=== PATIENT | male | born 1990 | race Caucasian/White ===

== ENCOUNTER 2017-02-10 17:06 | Emergency (ER) | payer MEDICAID ==
[2017-02-10 17:24] VITALS: BP 141/76
--- NOTE | 2017-02-10 17:56 | ED Physician Documentation ---
PD HPI LOWER EXT INJURY - Stated complaint Stated Complaint: LT KNEE PX - Chief complaint Chief Complaint: Ext Problem - History obtained from History obtained from: Patient - History of Present Illness PD HPI LOW EXT INJURY LOCATION: Left, Knee Type of injury: No: Twist, Blunt / blow Where injury occurred: Work Timing - onset: How many weeks ago (2-3) Timing - details: Gradual onset, Still present, Waxing and waning (more noted at last part and end of work day.) Worsened by: Moving. No: Palpating Associated symptoms: Swelling, Other (locking couple times, giving out and clicking the past few days.). No: Weakness, Numbness Contributing factors: No: Prior ortho surgery Similar symptoms before: No diagnosis (had a knee injury running 8 years ago and has had just intermittent problems since. Last summer lilian, he went through half of summer before his knee hurt like it does currently.) Recently seen: Not recently seen Review of Systems Constitutional: denies: Fever, Chills Skin: denies: Rash, Lesions, Abrasion (s), Laceration (s) Musculoskeletal: reports: Other (knee pain as in HPI.) Neurologic: denies: Focal weakness, Numbness PD PAST MEDICAL HISTORY - Past Medical History Past Medical History: No Endocrine/Autoimmune: None Musculoskeletal: None - Past Surgical History Past Surgical History: Yes General: Appendectomy - Present Medications Home Medications: Ambulatory Orders Medication Instructions Recorded Confirmed Hydrocodone/Acetaminophen [Daisetta 1 each PO Q6H PRN #20 tablet 02/10/17 5-325 Tablet] Naproxen [Naprosyn] 500 mg PO BID #20 tablet 02/10/17 - Allergies Allergies/Adverse Reactions: Allergies Allergy/AdvReac Type Severity Reaction Status Date / Time No Known Drug Allergies Allergy Verified 02/10/17 17:11 - Social History Does the pt smoke?: Yes Smoking Status: Current every day smoker Does the pt drink ETOH?: No Does the pt have substance abuse?: No PD ED PE NORMAL - Vitals Vital signs reviewed: Yes - General General: Alert and oriented X 3, Well developed/nourished - Back Back: No spinal TTP - Derm Derm: Normal color, Warm and dry - Extremities Extremities: No edema, No calf tenderness / cord, Other (left knee without effusion. Tender anteriorly above and below kneecap in tendon area. No crepitance. Ligament testing without laxity nor pain. Meniscal impaction testing with pain but no clicking. ) - Neuro Neuro: Alert and oriented X 3, No motor deficit, No sensory deficit Results - Vitals Vitals: Oxygen O2 Source Room air - Rads (name of study) knee Radiology: Prelim report reviewed, EMP read contemporaneously (no acute) PD MEDICAL DECISION MAKING - ED course Complexity details: reviewed results, considered differential (sounds like meniscal process, likely loose tear. 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 But can try it and can go to straight when not working and follow up with ORtho. ), d/w patient Departure - Departure Disposition: 01 Home, Self Care Clinical Impression: Left knee pain Qualifiers: Chronicity: acute Qualified Code(s): M25.562 - Pain in left knee Meniscal injury Qualifiers: Encounter type: initial encounter Laterality: left Qualified Code(s): S83.92XA - Sprain of unspecified site of left knee, initial encounter Condition: Stable Record reviewed to determine appropriate education?: Yes Instructions: ED Meniscal Injury Knee Poss, ED Sprain Knee Follow-Up: Rolando Hanson MD [Provider Admit Priv/Credential] - Prescriptions: Naproxen [Naprosyn] 500 mg PO BID #20 tablet Hydrocodone/Acetaminophen [Daisetta 5-325 Tablet] 1 each PO Q6H PRN #20 tablet PRN Reason: Pain Comments: Use the knee brace when up and around. During work, you can set it for 0-90 degree range to allow some function, then otherwise to set it to 0-20 degrees to support the cartilage and tendons better. Naproxen twice daily for 10 days. Add Tylenol or pain med as needed for pain. Follow up with Ortho in about a week , call tomorrow for an appt. This may be some patellar tendonitis but also sounds likely to be a torn meniscus. The above is the initial right treatment for both. Discharge Date/Time: 02/10/17 19:42
[2017-02-10] MEDS ORDERED: IBUPROFEN 600 MG TABLET PO STA (18:38)
[2017-02-10] MEDS ORDERED: traMADol 50 MG TABLET PO STA (18:38)
[2017-02-10] MEDS ORDERED: IBUPROFEN 600 MG TABLET PO ONE (18:54)
[2017-02-10] MEDS ORDERED: traMADol 50 MG TABLET PO ONE (18:54)
--- NOTE | 2017-02-10 20:08 | XRAY Preliminary Report ---
Exam: XR Knee 4 View LT IMPRESSION: Normal knee radiography. [facility] SITE ID: [id number]
--- NOTE | 2017-02-10 20:10 | XRAY Report ---
EXAM: LEFT KNEE RADIOGRAPHY EXAM DATE: 02/10/2017 07:06 PM. CLINICAL HISTORY: Knee pain for awhile, worse for 2 weeks. COMPARISON: None. TECHNIQUE: 4 views. FINDINGS: Bones: Normal. No fractures or bone lesions. Joints: Normal. No effusion. No subluxations. Soft Tissues: Normal. No soft tissue swelling. IMPRESSION: Normal knee radiography. [facility] Referring Provider Line: [phone] SITE ID: [id number]
== END 2017-02-10 19:42 | disposition home or self-care (01) ==
LOC: ED 17:06
DX: M25.562 Pain in left knee (principal); S83.92XA Sprain of unspecified site of left knee, initial encounter; X50.9XXA Other and unspecified overexertion or strenuous movements or postures, initial encounter; Y99.0 Civilian activity done for income or pay; F17.200 Nicotine dependence, unspecified, uncomplicated
CPT/HCPCS: 73564; 99283; A9270

== ENCOUNTER 2017-04-11 13:35 | Emergency (ER) | payer MEDICAID ==
--- NOTE | 2017-04-11 14:41 | ED Physician Documentation ---
PD HPI HEENT - Stated complaint Stated Complaint: TOOTH PAIN - Chief complaint Chief Complaint: Heent - History obtained from History obtained from: Patient - History of Present Illness Timing - onset: How many weeks ago (several) Timing - duration: Weeks Timing - details: Gradual onset Pain level max: 8 Pain level now: 8 Location: Tooth (R upper molar) Improves: Other (antibiotics were helping) Worsens: Temperatures, Other (chewing) Associated symptoms: No: Fever, Congestion, Rhinorrhea, Trismus, Unable to swallow, Swollen nodes, Facial swelling Similar symptoms before: Diagnosis (dental caries/abscess) Recently seen: Other (Patient states that he saw a dentist a few weeks ago, was told that he needs the wisdom teeth pulled, is being referred. [place] better on abx, now pain returned.) Review of Systems Constitutional: denies: Fever, Chills Nose: denies: Rhinorrhea / runny nose, Congestion Throat: denies: Sore throat GI: denies: Nausea, Vomiting, Diarrhea Skin: denies: Rash PD PAST MEDICAL HISTORY - Past Medical History Past Medical History: No Musculoskeletal: None - Past Surgical History Past Surgical History: Yes General: Appendectomy - Present Medications Home Medications: Ambulatory Orders Medication Instructions Recorded Confirmed Hydrocodone/Acetaminophen 1 - 2 each PO Q6H PRN #10 tablet 04/11/17 [Hydrocodon-Acetaminophen 5-325] Ibuprofen [Motrin] 800 mg PO Q8H PRN #30 tablet 04/11/17 Penicillin V Potassium 500 mg PO Q6HR #40 tablet 04/11/17 - Allergies Allergies/Adverse Reactions: Allergies Allergy/AdvReac Type Severity Reaction Status Date / Time No Known Drug Allergies Allergy Verified 04/11/17 13:42 - Social History Does the pt smoke?: Yes Smoking Status: Current every day smoker Does the pt drink ETOH?: No Does the pt have substance abuse?: No - Immunizations Immunizations are current?: Yes PD ED PE NORMAL - Vitals Vital signs reviewed: Yes - General General: Alert and oriented X 3, No acute distress, Well developed/nourished - HEENT HEENT: Ears normal, Moist mucous membranes, Pharynx benign - Neck Neck: Supple, no meningeal sign, No adenopathy - Cardiac Cardiac: RRR, No murmur - Respiratory Respiratory: No respiratory distress, Clear bilaterally - Derm Derm: Warm and dry - Neuro Neuro: Alert and oriented X 3 PD ED PE EXPANDED - HEENT HEENT Visual: 1 - tenderness (no swelling or drainable abscess) Results - Vitals Vitals: Vital Signs - 24 hr 04/11/17 04/11/17 13:40 14:49 Temperature 36.6 C Heart Rate 98 95 Respiratory 14 16 Rate Blood Pressure 127/70 115/71 O2 Saturation 100 100 Oxygen O2 Source Room air PD MEDICAL DECISION MAKING - ED course Complexity details: considered differential, d/w patient ED course: Patient is a 26-year-old male who presents to the emergency department with recurrent dental pain. Will place back on antibiotics and pain medication for home. Encourage close follow-up with his dentist. No gingival swelling, no facial swelling or cellulitis. No fevers. Patient counseled regarding signs and symptoms for which I believe and urgent re-evaluation would be necessary. Patient with good understanding of and agreement to plan and is comfortable going home at this time This document was made in part using voice recognition software. While efforts are made to proofread this document, sound alike and grammatical errors may occur. Departure - Departure Disposition: 01 Home, Self Care Clinical Impression: Dental caries Condition: Good Instructions: ED Cavity Dental, ED Tooth Pain Follow-Up: Robert Wood DDS [Physician No Access] - Adan Daley DDS [Physician No Access] - Prince Dawson DDS [Physician No Access] - NONI OLEARY [Physician No Access] - SADI PEREIRA DDS [Physician No Access] - JONNY PEREZ [Physician No Access] - [facility]aim[facility] Michael DDS [Physician No Access] - Vladimir Pérez DDS [Physician No Access] - Austen Rucker DDS [Physician No Access] - Dwayne Perales DDS [Physician No Access] - Natalie Renae DDS [Physician No Access] - JANNET HAMILTON [Physician No Access] - Brett Conrad DDS [Physician No Access] - Luis Felipe Matute DDS [Physician No Access] - MARCUS FLANAGAN MD [Physician No Access] - ANTELMO JUNIOR DDS [Physician No Access] - ADAN SALAZAR [Physician No Access] - Prescriptions: Penicillin V Potassium 500 mg PO Q6HR #40 tablet Hydrocodone/Acetaminophen [Hydrocodon-Acetaminophen 5-325] 1 - 2 each PO Q6H PRN #10 tablet PRN Reason: pain Ibuprofen [Motrin] 800 mg PO Q8H PRN #30 tablet PRN Reason: PAIN &/OR FEVER Comments: Take all antibiotics until gone. Return if you worsen. Do not drink alcohol or drive while on narcotic pain medicine. Note that many narcotic pain relievers also contain tylenol/acetaminophen. Please ensure that your total dose of acetaminophen from all sources does not exceed 3 grams (3000mg) per day. You may constipated on this medication, take a stool softener such as "Colace" twice a day while you are on it. Also recommend a hios-rlu-dascurc laxative such as senna or MiraLAX any day that you do not have a bowel movement. If you received narcotic pain medication in the emergency department, do not drive or operate machinery for the next 24 hours. Discharge Date/Time: 04/11/17 14:49
[2017-04-11 14:51] VITALS: BP 115/71
== END 2017-04-11 14:49 | disposition home or self-care (01) ==
LOC: ED 13:35
DX: K02.9 Dental caries, unspecified (principal); F17.200 Nicotine dependence, unspecified, uncomplicated
CPT/HCPCS: 99282; 99283

== ENCOUNTER 2023-03-28 11:08 | Observation (INO) | payer MEDICAID ==
--- OUTSIDE RECORDS SUMMARY | 2023-03-28 12:01 | EXTERNAL MEDICAL SUMMARY RPT | Continuity of Care Document ---
Author Name Unknown Address [address] [place] [address] Phone Organization [facility] Address [address] [place] [address] Phone Care Team Providers Care Telephone Surveyor Name Role Phone Faith Siegel Unavailable Unavailable Allergies and Intolerances date description facility reaction severity (no date) No Known Drug Allergies (no zhao ction) (no severity) Problems date description facility 2023-03-24 00:00 Patient left without being seen Procedures date description facility 2023-03-24 00:00 XR finger left, 2+ views Results/Labs test date facility value unit notes Social History date description facility 2023-03-24 00:00 Smokes tobacco daily (finding) Vital Signs date measurement value units 2023-03-24 00:00 BMI 24.3 kg/m2 2023-03-24 00:00 BP_diastolic 74 mmHg 2023-03-24 00:00 BP_systolic 128 mmHg 2023-03-24 00:00 heart_rate 100 /min 2023-03-24 00:00 height_metric 172.72 cm 2023-03-24 00:00 height_standard 68 in 2023-03-24 00:00 o2_saturation 100 % 2023-03-24 00:00 respiration_rate 14 /min 2023-03-24 00:00 temperature_metric 36.78 C 2023-03-24 00:00 temperature_standard 98.2 F 2023-03-24 00:00 weight_metric 72.57 kg 2023-03-24 00:00 weight_standard 159.99 lb
[2023-03-28] MEDS ORDERED: VANCOMYCIN INJ 2 GM in SODIUM CHLORIDE 0.9% 500 ML IV STA (13:00)
[2023-03-28] MEDS ORDERED: BUFFERED LIDOCAINE 10 ML SYRINGE SUBQ STA (13:00)
--- NOTE | 2023-03-28 13:01 | ED Physician Documentation ---
History of Present Illness - Stated complaint Stated Complaint: SPIDER BITE,FINGER SWELLING X 4 DAYS - Chief complaint Chief Complaint: General - History obtained from History obtained from: Patient - Additonal information Additional information: 32-year-old gentleman sustained what he thinks is a spider bite to the dorsum of the left second finger 4 days ago with progressive pain and swelling there. Now he has swelling up the arm. He denies fevers. PD PAST MEDICAL HISTORY - Past Medical History Endocrine/Autoimmune: None Musculoskeletal: None - Past Surgical History Past Surgical History: Yes General: Appendectomy - Present Medications Home Medications: Ambulatory Orders Medication Instructions Recorded Confirmed No Known Home Medications 03/28/23 03/28/23 - Allergies Allergies/Adverse Reactions: Allergies Allergy/AdvReac Type Severity Reaction Status Date / Time No Known Drug Allergies Allergy Verified 04/11/17 13:42 - Social History Does the pt smoke?: Yes Smoking Status: Current every day smoker Does the pt drink ETOH?: No Does the pt have substance abuse?: No - Immunizations Immunizations are current?: Yes PD ED PE NORMAL - Vitals Vital signs reviewed: Yes - General General: Alert and oriented X 3, Other (Slightly disheveled and unkempt) - Cardiac Cardiac: RRR, No murmur - Respiratory Respiratory: No respiratory distress, Clear bilaterally - Abdomen Abdomen: Non tender - Back Back: No CVA TTP, No spinal TTP - Derm Derm: Normal color, Warm and dry - Extremities Extremities: Other (There is an abscess on the dorsum of the left second finger, over the middle phalanx. He has swelling and cellulitis progressing up the f ginny to the proximal wrist. He has limited range of motion of the second digit due to pain.) - Neuro Neuro: Alert and oriented X 3, Normal speech Results - Vitals Vitals: Vital Signs - 24 hr 03/28/23 11:42 Temperature 36.9 C Heart Rate 106 H Respiratory 20 Rate Blood Pressure 127/74 O2 Saturation 99 Oxygen O2 Source Room air - Labs Labs: Laboratory Tests 03/28/23 03/28/23 03/28/23 13:12 13:12 13:12 WBC 11.2 H RBC 4.49 L Hgb 13.0 L Hct 40.0 L MCV 89.1 MCH 29.0 MCHC 32.5 RDW 12.7 Plt Count 362 MPV 9.7 Neut # (Auto) 8.1 H Lymph # (Auto) 2.2 [place] # (Auto) 0.6 Eos # (Auto) 0.1 Baso # (Auto) 0.1 Absolute Nucleated RBC 0.00 Nucleated RBC % 0.0 Sodium 136 Potassium 3.5 Chloride 97 L Carbon Dioxide 34 H Anion Gap 5.0 L BUN 9 Creatinine 0.7 Estimated GFR (MDRD) 132 Glucose 98 Lactic Acid 1.2 Calcium 9.6 Total Bilirubin 0.3 AST 18 ALT 17 Alkaline Phosphatase 92 Total Protein 7.1 Albumin 4.0 Globulin 3.1 Albumin/Globulin Ratio 1.3 Procedures - Abscess I&D (location) Left second finger Preparation: Lidocaine 1% (Digital block with buffered lidocaine and also 1 mg of IV Ativan for anxiolysis as he was quite anxious.) Incision: Incised with scalpel, Purulent drainage, Loculations broken, Culture obtained Other: Pt tolerated well PD Medical Decision Making - ED course ED course: 32-year-old gentleman with an abscess of several days duration to the dorsum of the left second finger. An I&D was done. Needed some Ativan for anxiolysis. The cellulitis is quite extensive of his arm and as such I think he should probably be admitted for IV antibiotics. Spoke with our on-call orthopedic surgeon, Dr Estrella at 1:55 PM who will follow along and recommends Ancef in addition to the vancomycin already ordered. Spoke with Dr. Esparza for observation at 2 PM. Departure - Departure Disposition: ED Place in Observation Clinical Impression: Abscess of finger of left hand, Cellulitis of arm, left Condition: Serious Forms: PCP List
[2023-03-28] MEDS ORDERED: LORazepam 2 MG/ML VIAL IVP STA (13:09)
[2023-03-28 13:29] LABS: BASOPHILS # (AUTO) 0.1 10^3/uL (0.0-0.1); BASOPHILS % (AUTO) 0.4 %; EOSINOPHILS # (AUTO) 0.1 10^3/uL (0.0-0.7); EOSINOPHILS % (AUTO) 1.1 %; LYMPHOCYTES # (AUTO) 2.2 10^3/uL (1.5-3.5); LYMPHOCYTES % (AUTO) 19.7 %; MEAN CORPUSCULAR HGB CONC 32.5 g/dL (32.0-36.0); MEAN CORPUSCULAR VOLUME 89.1 fL (80.0-94.0); MEAN PLATELET VOLUME 9.7 fL (7.4-11.4); MONOCYTES # (AUTO) 0.6 10^3/uL (0.0-1.0); MONOCYTES % (AUTO) 5.6 %; NEUTROPHILS # (AUTO) 8.1 10^3/uL (1.5-6.6); NEUTROPHILS % (AUTO) 72.8 %; PLT - PLATELET COUNT 362 10^3/uL (130-450); RED BLOOD COUNT 4.49 10^6/uL (4.70-6.10); RED CELL DISTRIBUTION WIDTH 12.7 % (12.0-15.0); WHITE BLOOD COUNT 11.2 x10^3/uL (4.8-10.8)
[2023-03-28 13:40] LABS: ALBUMIN/GLOBULIN RATIO 1.3 (1.0-2.2); BILIRUBIN,TOTAL 0.3 mg/dL (0.2-1.0); CALCIUM 9.6 mg/dL (8.5-10.3); CREATININE 0.7 mg/dL (0.6-1.3); POTASSIUM 3.5 mmol/L (3.5-4.5); TOTAL PROTEIN 7.1 g/dL (6.4-8.9)
[2023-03-28] MEDS ORDERED: ceFAZolin 1 GM in SODIUM CHLORIDE 0.9% MINIBAG 100 ML IV STA (13:55)
[2023-03-28] MEDS ORDERED: SODIUM CHLORIDE FLUSH 0.9% 10 ML SYRINGE IVP PRN (15:16)
[2023-03-28] MEDS ORDERED: ACETAMINOPHEN 325 MG TABLET PO PRN (15:16)
[2023-03-28] MEDS ORDERED: ONDANSETRON 4 MG/2 ML VIAL IVP PRN (15:16)
--- NOTE | 2023-03-28 18:37 | PHARMACY PROGRESS NOTE ---
- Therapy Status Vancomycin regimen day #: 1 Therapy status: Awaiting steady state Basis for treatment: Empirical Treatment indication: SSTI FROM SPIDER BITE (MRSA RISK) Trough goal: 10-15 Concurrent antibiotics: ANCEF - Monitoring and Recommendation Clinical response to treatment: I&O Previous 24 hours 03/26/23 03/27/23 03/28/23 23:59 23:59 23:59 Intake Total 737 Balance 737 Lab Results 03/28/23 13:12 BUN 9 Creatinine 0.7 Estimated GFR (MDRD) 132 Monitoring plan: Daily serum creatinine Next trough due prior to maintenance dose #: 4 Next trough due (date/time): 03/29/23 At 12:30
[2023-03-28] MEDS ORDERED: ceFAZolin 1 GM VIAL IVP SCH (19:00)
[2023-03-28] MEDS: SODIUM CHLORIDE FLUSH 0.9% 10 ML SYRINGE IVP SCH (19:18)
[2023-03-28] MEDS: HYDROcod/ACETAM 10 MG/325 MG TABLET PO PRN (19:47)
--- NOTE | 2023-03-28 19:56 | HISTORY & PHYSICAL EXAMINATION ---
Chief Complaint - Chief Complaint Chief Complaint: Swollen painful finger, spreading to hand History of Present Illness - Admitted From Admitted From:: ED - History Obtained From History obtained from: ED provider and the pt - History of Present Illness HPI Comment/Other: This is a 32-year-old male with no significant past medical history. He reports that he had a wound on his leg 1 year ago in the summer which she thought started as a spider bite and it swelled, burst and healed on its own. Patient presented to the ER today complaining of swelling of his left second finger on the dorsum which he felt was from a spider bite. It started 2 days ago and has been swelling more, more painful and now the swelling is spreading onto his hand. In the ER he was evaluated and the lesion was incised and drained and pus was expelled and cultures were sent. WBC 11, blood pressure stable, heart rate 106, no fever. The patient was started on Vanco and Ancef. Orthopedics was contacted and will see the pt. The ED provider then spoke to me. The patient will be placed in observation to start him on IV antibiotics, administer pain meds and monitor his progress. History - Past Medical History Cardiovascular: reports: None Respiratory: reports: None Neuro: reports: None Endocrine/Autoimmune: reports: None GI: reports: None TIMBER SETTER: reports: None : reports: None Psych: reports: None Musculoskeletal: reports: None MRSA Hx?: No - Past Surgical History General: reports: Appendectomy - Family & Social History Family History Comment/Other: No diseases run in the family Living arrangement: At home Living Situation: Alone Social History Notes: Patient drinks no alcohol. He has decreased smoking down to 2 cigarettes a day, is trying to quit. He smokes marijuana. He denies other drug use. - Substance History Use: Uses substance without health or social issues: Cannabis Meds/Allgy - Home Medications Home Medications: Ambulatory Orders Medication Instructions Recorded Confirmed No Known Home Medications 03/28/23 03/28/23 - Allergies Allergies/Adverse Reactions: Allergies Allergy/AdvReac Type Severity Reaction Status Date / Time No Known Drug Allergies Allergy Verified 04/11/17 13:42 Review of Systems - Musculoskeletal Musculoskeletal: reports: Other (He has dirt under his nails and dirty skin. When asked if this is from his job, he says that it is "because of where he lives".) - All Other Systems All Other Systems: reports: Reviewed and negative (He denied a fever the past 2 days.) Exam - Vital Signs Reviewed Vital Signs: Yes Vital Signs: Vital Signs x48h Temp Pulse Pulse Resp BP BP Pulse Ox 03/28/23 16:33 36.4 C L 99 16 118/72 99 03/28/23 16:12 87 16 121/82 H 100 03/28/23 14:12 89 20 118/77 100 03/28/23 13:46 16 118/77 100 - Physical Exam General Appearance: positive: No acute distress, Alert Eyes Bilateral: positive: Normal inspection, EOMI ENT: positive: ENT inspection nml, No signs of dehydration Neck: positive: Nml inspection, No JVD Respiratory: positive: No respiratory distress, Breath sounds nml Cardiovascular: positive: Regular rate & rhythm, No murmur Abdomen: positive: Non-tender, Nml bowel sounds, No distention Skin: positive: Warm, Dry Extremities: positive: Other (The left second finger dorsum has a wound (which was I&D'd in the ER) approximately 4 cm in diameter with a clean base. There is redness, swelling and tenderness of the entire left finger and also of his joints of his left hand and swelling goes up to the dorsum of his left wrist) Conclusion/Plan - Problem List (1) Abscess of finger of left hand Conclusion/Plan: Patient claims that the injury started from a spider bite that he sustained 2 days ago. It then started to swell and enlarge, became red and tender. The swelling today started spreading to his hand all the way to his wrist The patient has very poor hygiene with dirt under all of his fingers, other crevices also have dirt. When asked why he has such poor hygiene, whether it is from working, he stated that no it is "because of how he had to do things around his house". I did not ask if he is homeless. Plan: Await Gram stain and culture results from the wound material sent to lab Begin IV Vanco and IV Ancef, as was recommended by orthopedics to the ER doctor Administer pain meds, tylenol prn and narcotics prn have been ordered The wound was dressed with a bandage and gauze by staff forester Left hand elevation Other recommendations from orthopedic consult which we await tomorrow Follow CBC daily (2) Cellulitis of arm, left Conclusion/Plan: Thus welling and tenderness have spread and he appears to have cellulitis Plan: As a #1 - Lab Results Fish Bones: 03/28/23 13:12 03/28/23 13:12
[2023-03-28] MEDS: VANCOMYCIN INJ 1 GM, VANCOMYCIN INJ 250 MG in SODIUM CHLORIDE 0.9% 250 ML IV SCH (20:31)
[2023-03-29] MEDS: ceFAZolin 1 GM in SODIUM CHLORIDE 0.9% MINIBAG 100 ML IV SCH ×2 (00:46→07:16)
[2023-03-29] MEDS: SODIUM CHLORIDE FLUSH 0.9% 10 ML SYRINGE IVP SCH ×3 (00:47→15:50)
[2023-03-29 05:14] LABS: BASOPHILS # (AUTO) 0.1 10^3/uL (0.0-0.1); BASOPHILS % (AUTO) 0.6 %; EOSINOPHILS # (AUTO) 0.1 10^3/uL (0.0-0.7); EOSINOPHILS % (AUTO) 1.7 %; HCT - HEMATOCRIT 36.8 % (42.0-52.0); HGB - HEMOGLOBIN 12.1 g/dL (14.0-18.0); LYMPHOCYTES # (AUTO) 2.3 10^3/uL (1.5-3.5); LYMPHOCYTES % (AUTO) 28.3 %; MEAN CORPUSCULAR HEMOGLOBIN 29.1 pg (27.0-31.0); MEAN CORPUSCULAR HGB CONC 32.9 g/dL (32.0-36.0); MEAN CORPUSCULAR VOLUME 88.5 fL (80.0-94.0); MEAN PLATELET VOLUME 9.8 fL (7.4-11.4); MONOCYTES # (AUTO) 0.7 10^3/uL (0.0-1.0); MONOCYTES % (AUTO) 8.5 %; NEUTROPHILS % (AUTO) 60.7 %; PLT - PLATELET COUNT 353 10^3/uL (130-450); RED BLOOD COUNT 4.16 10^6/uL (4.70-6.10); RED CELL DISTRIBUTION WIDTH 12.7 % (12.0-15.0); WHITE BLOOD COUNT 8.3 x10^3/uL (4.8-10.8)
[2023-03-29] MEDS: VANCOMYCIN INJ 1 GM, VANCOMYCIN INJ 250 MG in SODIUM CHLORIDE 0.9% 250 ML IV SCH ×3 (05:16→23:51)
[2023-03-29 05:28] LABS: CALCIUM 9.1 mg/dL (8.5-10.3); CREATININE 0.6 mg/dL (0.6-1.3); POTASSIUM 4.2 mmol/L (3.5-4.5)
[2023-03-29] MEDS ORDERED: ceFAZolin 1 GM VIAL IVP SCH (09:00)
[2023-03-29] MEDS: cefTRIAXone 2 GM in SODIUM CHLORIDE 0.9% MINIBAG 100 ML IV SCH (12:20)
--- NOTE | 2023-03-29 12:27 | PHARMACY PROGRESS NOTE ---
- Best Possible Medication History Admit Date and Time: 03/28/23 1520 Processed by: Pharmacy Medication History completed: Yes Patient Interview: Completed As the person ultimately responsible for medication therapy, providers are able to order a medication from an existing home medication list in [facility] via the "Reconcile Routine" prior to Confirmation of that medication by desktop support technician. Such practice is discouraged except when the physician, in their clinical sukhdev gment, deems that a medical need exists for a medication without regard to previous use.
[2023-03-29 13:10] LABS: VANCOMYCIN,TROUGH 10.4 ug/mL
--- NOTE | 2023-03-29 15:25 | PROVIDER PROGRESS NOTE ---
Subjective - Prog Note Date Prog Note Date: 03/29/23 - Subjective Subjective: He feels like the swelling in his left arm and redness is better. Still complains of pain over the left index finger. Denies any IV drug use. Current Medications - Current Medications Current Medications: Active Medications Acetaminophen (Acetaminophen 325 Mg Tablet) 650 mg PO Q4HR PRN PRN Reason: Pain 1 to 4, or Fever Hydrocodone Bitart/Acetaminophen (Hydrocod/Acetam 10 Mg/325 Mg Tablet) 1 tab PO Q4HR PRN PRN Reason: Pain 8 to 10 Last Admin: 03/28/23 19:47 Dose: 1 tab Alcohol (Ethyl Alcohol 62% Swab Ampule) 1 amp VICKY BID OLGA Vancomycin HCl 1 gm/Vancomycin HCl 250 mg/ Sodium Chloride 250 mls @ 167 mls/hr IV Q8H [facility] Last Infusion: 03/29/23 10:02 Dose: Infused Ceftriaxone Sodium 2 gm/ (Sodium Chloride) 100 mls @ 200 mls/hr IV DAILY [facility] Last Infusion: 03/29/23 14:26 Dose: Infused Ondansetron HCl (Ondansetron 4 Mg/2 Ml Vial) 4 mg IVP Q6HR PRN PRN Reason: Nausea / Vomiting Sodium Chloride (Sodium Chloride Flush 0.9% 10 Ml Syringe) 10 ml IVP PRN PRN PRN Reason: NEEDED PER PROVIDER ORDERS Sodium Chloride (Sodium Chloride Flush 0.9% 10 Ml Syringe) 10 ml IVP 0100,0900,1700 [facility] Last Admin: 03/29/23 07:16 Dose: 10 ml No Known Home Medications 03/28/23 Objective - Vital Signs/Intake & Output Reviewed Vital Signs: Yes Vital Signs: Vital Signs x48h Temp Pulse Resp BP Pulse Ox 03/29/23 12:40 36.8 C 85 16 116/63 99 Intake & Output: Intake & Output 03/26/23 03/27/23 03/28/23 03/29/23 23:59 23:59 23:59 23:59 Intake Total 1287 1490 Output Total 0 Balance 1287 1490 - Objective General Appearance: positive: No acute distress, Alert Eyes Bilateral: positive: Normal inspection ENT: positive: ENT inspection nml Neck: positive: Nml inspection Respiratory: positive: No respiratory distress Cardiovascular: positive: Regular rate & rhythm Skin: positive: Warm, Dry, Other (Dressing in place over the left index finger. There is edema to the left upper extremity from the wrist up to the left elbow. Erythema over the left forearm is minimal. Sensation is intact in the the fingers.) Extremities: positive: No pedal edema Neurologic/Psychiatric: positive: Motor nml. negative: Disoriented to person, Disoriented to place, Disoriented to time - Lab Results Fish Bones: 03/29/23 04:22 03/29/23 04:22 Other Labs: Lab Results x24hrs 03/29/23 03/29/23 03/29/23 Range/Units 12:53 04:22 04:22 WBC 8.3 (4.8-10.8) x10^3/uL RBC 4.16 L (4.70-6.10) 10^6/uL Hgb 12.1 L (14.0-18.0) g/dL Hct 36.8 L (42.0-52.0) % MCV 88.5 (80.0-94.0) fL MCH 29.1 (27.0-31.0) pg MCHC 32.9 (32.0-36.0) g/dL RDW 12.7 (12.0-15.0) % Plt Count 353 (130-450) 10^3/uL MPV 9.8 (7.4-11.4) fL Neut # (Auto) 5.0 (1.5-6.6) 10^3/uL Lymph # (Auto) 2.3 (1.5-3.5) 10^3/uL [place] # (Auto) 0.7 (0.0-1.0) 10^3/uL Eos # (Auto) 0.1 (0.0-0.7) 10^3/uL Baso # (Auto) 0.1 (0.0-0.1) 10^3/uL Absolute Nucleated RBC 0.00 x10^3/uL Nucleated RBC % 0.0 /100WBC Sodium 135 (135-145) mmol/L Potassium 4.2 (3.5-4.5) mmol/L Chloride 101 (101-111) mmol/L Carbon Dioxide 30 (21-32) mmol/L Anion Gap 4.0 L (6-13) BUN 7 (6-20) mg/dL Creatinine 0.6 (0.6-1.3) mg/dL Estimated GFR (MDRD) 157 (>89) Glucose 103 (74-104) mg/dL Calcium 9.1 (8.5-10.3) mg/dL Last Dose Date 03/28/23 Last Dose Time 1540 Vancomycin Trough 10.4 ug/mL ABX Reporting Has patient been on IV antibiotics over the past 48 hours?: Yes Assessment/Plan - Problem List (1) Abscess of finger of left hand Impression: This occurred after a spider bite about 3 to 4 days ago. Patient denies IV drug use. Pictures were reviewed from admission. He has been on vancomycin and cefazolin IV. White blood cell count is now within normal limits.Wound cultures growing Staph aureus and blood cultures have been negative to date. We will keep him on vancomycin IV and switch cefazolin to ceftriaxone IV. Await orthopedic surgery evaluation. I am hopeful this can be treated with antibiotics alone but will await their input. I do believe he will need another day of IV antibiotics given the severity of his cellulitis and initial presentation but if no need for surgical intervention he may potentially able to go home tomorrow on oral antibiotics with outpatient follow-up. Continue pain control with Tylenol and hydrocodone as needed. (2) Cellulitis of arm, left Impression: The cellulitis of the left arm appears improved. The erythema is minimal and the edema appears to be improving although still quite present when compared to the right arm. We will continue to manage with IV antibiotics as mentioned above. Continue with arm elevation.
[2023-03-29] MEDS: ethyl alcohoL 62% SWAB AMPULE NAS SCH (21:21)
[2023-03-30] MEDS: SODIUM CHLORIDE FLUSH 0.9% 10 ML SYRINGE IVP SCH ×2 (01:51→09:07)
[2023-03-30 07:35] VITALS: BP 120/68; O2SAT 100
[2023-03-30] MEDS: ethyl alcohoL 62% SWAB AMPULE NAS SCH (08:40)
[2023-03-30] MEDS: cefTRIAXone 2 GM in SODIUM CHLORIDE 0.9% MINIBAG 100 ML IV SCH (08:40)
[2023-03-30] MEDS ORDERED: polyethylene glycoL 3350 17 GM PACKET PO SCH (09:00)
[2023-03-30] MEDS: VANCOMYCIN INJ 1 GM, VANCOMYCIN INJ 250 MG in SODIUM CHLORIDE 0.9% 250 ML IV SCH (09:07)
[2023-03-30] MEDS: HYDROcod/ACETAM 10 MG/325 MG TABLET PO PRN (10:52)
--- NOTE | 2023-03-30 11:01 | CONSULTATION NOTE ---
Surgery Consult - Admit Date Hospital Admission Date: 03/28/23 - Consult Date Consult Date: 03/30/23 Requesting Provider: Jillian - Chief Complaint Chief Complaint: Left index finger abscess - Home Meds/Allergies Home Medications: Patient History Medication Instructions Recorded Confirmed No Known Home Medications 03/28/23 03/28/23 Allergies/Adverse Reactions: Allergies Allergy/AdvReac Type Severity Reaction Status Date / Time No Known Drug Allergies Allergy Verified 04/11/17 13:42 - Vital Signs Vital Signs: Last Vital Signs Temp 36.7 C 03/30/23 07:22 Pulse 90 03/30/23 07:22 Resp 16 03/30/23 07:22 BP 120/68 03/30/23 07:22 Pulse Ox 100 03/30/23 07:22 O2 Flow Rate Intake & Output: Intake & Output 03/27/23 03/28/23 03/29/23 03/30/23 23:59 23:59 23:59 23:59 Intake Total 1287 2190 1250 Output Total 0 Balance 1287 2190 1250 - Lab Results Result Diagrams: 03/29/23 04:22 03/29/23 04:22 - Consultation Note Consultation Note: 32 year old homeless male presents for evaluation of left index finger abscess. He reports he believes he was bitten by a spider 3 to 4 days prior to admission. He was admitted to [facility] admitted under medicine service for left finger and arm cellulitis on 03/28/2023. Orthopedic surgery consulted for concern of tendon and osseous involvement. White blood cell count was 11.2 on admission downtrending to 8.3. He has been managed with IV ceftriaxone and vancomycin with positive response. Decreasing erythema, pain and swelling per patient. In discussion with hospitalist physician, it appears patient is approaching discharge with plan for discharge on Bactrim for 10 days in outpatient setting. Left index finger has a subcutaneous absess about the proximal interphalangeal joint of the dorsal aspect of the left index finger. Good blood return with probing without tendon or joint exposed. Tendon function is intact to the proximal interphalangeal joint of the left index finger for flexion and exte nsion. Capillary refill less than 2 seconds. Erythema and effusion about the left index finger without ecchymosis. Inability make a complete fist due to swelling and pain. Per chart review and discussion with patient, it appears he has made significant improvement over the past 2 days. Plan: - Continue local wound care with xeroform dressing and tube guaze - Epsom salt warm soaks recommended - Agree with bactrim orally for 10 days - Follow up for continued wound care for continued dressing changes within 2-3 days of discharge - Monitor for fever, chills, expanding erythema or pain with finger movement - No indication for surgery at this time
--- NOTE | 2023-03-30 11:03 | Discharge Plan ---
Discharge Plan Problem Reviewed?: Yes Disposition: Home, Self Care Condition: Fair Prescriptions: Sulfamethox/Trimeth 800/160 [Bactrim Ds] 1 tablet PO BID 10 Days #20 tablet Diet: Regular Activity Restrictions: Activity as Tolerated Shower Restrictions: No Driving Restrictions: No Health Concerns: You are homeless and have a history of substance abuse. This leads you to have increased risk of skin infection. You presented with an infection of the swollen second finger on your left hand. The redness and swelling spread up your finger into your hand and up to your forearm. In the emergency room you had signs of infection with an elevated white cell count in your blood, and redness and swelling and heat of your finger and hand. We found you to have a small abscess of the finger. Cultures have shown it to be methicillin-resistant Staph aureus. Which is a regular skin bacteria but it is resistant to regular antibiotics because of your immunocompromise status. You responded to the incision and debridement, antibiotics that were intravenous. On examination you are now stable to leave the hospital. Plan of Treatment: Recognizing that you are homeless, we understand that it would be difficult for you to obtain transportation. But we are asking you to take the bus and see orthopedic hand surgery in the next few days. They need to verify that your hand is healing and not needing any further incision and debridement. That would be Dr. Garcia and in [place]. The bus stops right in front of his office. Please keep your hand clean and dry. Wash it daily with soap, soak it in Epsom salts for half an hour, and then dry it very carefully. Recover the finger with a dry clean bandage. We are recommending Bactrim double strength tablet. 1 tablet twice a day to complete antibiotic therapy. You need to do that for a total of 10 days. Care Goals: Current care goals include finding stable housing, and to have resolution of your hand infection No Smoking: If you smoke, Please STOP! Call for help. Follow-up with: Morgan Estrella MD [Provider Admit Priv/Credential] -
--- NOTE | 2023-03-30 11:10 | Discharge Plan ---
Discharge Plan Disposition: 01 Home, Self Care Condition: Fair Prescriptions: Sulfamethox/Trimeth 800/160 [Bactrim Ds] 1 tablet PO BID 10 Days #20 tablet Diet: Regular Activity Restrictions: Activity as Tolerated Shower Restrictions: No Driving Restrictions: No Health Concerns: You are homeless and have a history of substance abuse. This leads you to have increased risk of skin infection. You presented with an infection of the swollen second finger on your left hand. The redness and swelling spread up your finger into your hand and up to your forearm. In the emergency room you had signs of infection with an elevated white cell count in your blood, and redness and swelling and heat of your finger and hand. We found you to have a small abscess of the finger. Cultures have shown it to be methicillin-resistant Staph aureus. Which is a regular skin bacteria but it is resistant to regular antibiotics because of your immunocompromise status. You responded to the incision and debridement, antibiotics that were intravenous. On examination you are now stable to leave the hospital. Plan of Treatment: Recognizing that you are homeless, we understand that it would be difficult for you to obtain transportation. But we are asking you to take the bus and see orthopedic hand surgery in the next few days. They need to verify that your hand is healing and not needing any further incision and debridement. That would be Dr. Garcia and in [place]. The bus stops right in front of his office. Please keep your hand clean and dry. Wash it daily with soap, soak it in Epsom salts for half an hour, and then dry it very carefully. Recover the finger with a dry clean bandage. We are recommending Bactrim double strength tablet. 1 tablet twice a day to complete antibiotic therapy. You need to do that for a total of 10 days. Care Goals: Current care goals include finding stable housing, and to have resolution of your hand infection No Smoking: If you smoke, Please STOP! Call for help. Follow-up with: Morgan Estrella MD [Provider Admit Priv/Credential] -
--- NOTE | 2023-03-30 11:11 | DISCHARGE SUMMARY ---
"Discharge Summary Admit Date: 03/28/23 Discharge Date: 03/30/23 Discharging Provider: Linda Solomon MD Primary Care Provider: none Code Status: Attempt Resuscitation Condition at Discharge: Fair Discharge Disposition: 01 Home, Self Care - DIAGNOSES Discharge Diagnoses with Status of Each Condition: 1. Abscess of finger of left hand 2. Cellulitis of left arm 3. Homeless single person - HPI History of Present Illness: This is a 32-year-old male with no significant past medical history. He reports that he had a wound on his leg 1 year ago in the summer which she thought started as a spider bite and it swelled, burst and healed on its own. Patient presented to the ER today complaining of swelling of his left second finger on the dorsum which he felt was from a spider bite. It started 2 days ago and has been swelling more, more painful and now the swelling is spreading onto his hand. In the ER he was evaluated and the lesion was incised and drained and pus was expelled and cultures were sent. WBC 11, blood pressure stable, heart rate 106, no fever. The patient was started on Vanco and Ancef. Orthopedics was contacted and will see the pt. The ED provider then spoke to me. The patient will be placed in observation to start him on IV antibiotics, administer pain meds and monitor his progress. - Past Medical History Cardiovascular: reports: None Respiratory: reports: None Neuro: reports: None Endocrine/Autoimmune: reports: None GI: reports: None REAM CUTTER: reports: None : reports: None Psych: reports: None Musculoskeletal: reports: None MRSA Hx?: No - Past Surgical History General: reports: Appendectomy - CONSULTS | PROCEDURES Consultations: Consultation with orthopedics/ALLYSON Talbert Procedures: Blood cultures are negative after 2 days Wound culture of finger shows methicillin-resistant Staph aureus - HOSPITAL COURSE Hospital Course: He underwent a digital block in the emergency room and had incision with a scalpel. Purulent drainage was removed. Loculations broken up. Culture was obtained. He ended up growing MRSA out of that finger. Started on empiric vancomycin before cultures came back. White cell count went down to normal. He had no fevers. Redness and swelling of the hand and distal forearm completely resolved. He was seen by orthopedic surgery. There is summary is as follows: - Continue local wound care with xeroform dressing and tube guaze - Epsom salt warm soaks recommended - Agree with bactrim orally for 10 days - Follow up for continued wound care for continued dressing changes within 2-3 days of discharge - Monitor for fever, chills, expanding erythema or pain with finger movement - No indication for surgery at this time Patient felt safe enough to be discharged. He asked for a shower before he left. Social work met with him and they [facility], where he could keep his wound clean and dry. Instructions were relayed to home with regards to orthopedics. He has been asked to follow-up with orthopedics in their clinic in the next 1 to 2 weeks. He asked us to send prescriptions to [facility] which was done. He is discharged in stable condition. He is a disheveled young white male who is in no acute distress. Temperature is 36.7, heart rate 90, blood pressure 120/68, respirations 16, 100% saturated on room air. 5 foot 8 inches tall, 73 kg. He has clear lungs, a regular rate and rhythm, and abdomen that is benign. The index finger is covered in bandage and is clean and dry. The hand itself is without swelling, redness. He can flex and extend at the wrist without any difficulty. I have asked him to follow-up with the walk-in clinic if he has recurrence of fever, chills, swelling. Please try and take the bus to see orthopedic surgery. Explained that the bus stops right in front of the office. - ALLERGIES Allergies/Adverse Reactions: Allergies Allergy/AdvReac Type Severity Reaction Status Date / Time No Known Drug Allergies Allergy Verified 04/11/17 13:42 - MEDICATIONS Home Medications: Ambulatory Orders Medication Instructions Recorded Confirmed Sulfamethox/Trimeth 800/160 1 tablet PO BID 10 Days #20 tablet 03/30/23 [Bactrim Ds] - LABS Result Diagrams: 03/29/23 04:22 03/29/23 04:22"
== END 2023-03-30 11:35 | disposition home or self-care (01) ==
LOC: ED 11:08 → MS2 15:20
PROVIDERS: ADMIT Internal Medicine; ATTEND Specialist
DX: L02.512 Cutaneous abscess of left hand (principal); L03.114 Cellulitis of left upper limb; B95.62 Methicillin resistant Staphylococcus aureus infection as the cause of diseases classified elsewhere; F17.210 Nicotine dependence, cigarettes, uncomplicated; Z59.00 Homelessness unspecified
CPT/HCPCS: 26010; 36415; 80048; 80053; 80202; 83605; 85025; 87040; 87070; 87181; 87205; 96365; 96366; 96367; 96368; 96375; 96376; 99284; 99285; A9270; G0378; J2060; J3370